=== PATIENT | male | born 1965 | race Caucasian/White ===

== ENCOUNTER 2020-06-26 18:24 | Emergency (ER) | payer BC ==
[~2020-06-26] VITALS: Ht 177.8 cm; Wt 97.5 kg
[2020-06-26 18:37] VITALS: BP 118/80
[2020-06-26 18:55] LABS: ABSOLUTE MONOCYTES 0.4 thou/uL (0.0-1.2); ABSOLUTE NEUTROPHILS 5.4 thou/uL (1.6-8.1); BASOPHILS 0.6 %; EOSINOPHILS 0.2 %; HEMATOCRIT 43.3 % (42.0-52.0); HEMOGLOBIN 15.1 gm/dL (14.0-18.0); LYMPHOCYTES 25.3 %; MCH 29.7 pg (26.0-34.0); MCHC 34.8 g/dL (28.0-37.0); MCV 85.5 fL (80.0-100.0); MONOCYTES 5.5 %; MPV 6.9 fl. (7.2-11.1); NUCLEATED RBCS 0 /100WBC; PLATELET COUNT* 403 thou/uL (150-400); POLYS 68.4 %; RBC 5.06 mil/uL (4.50-6.00); RDW-CV 13.4 % (10.5-14.5); WBC 7.9 thou/uL (4.0-11.0)
[2020-06-26 19:01] LABS: INR 1.1; PROTIME 11.2 Seconds (9.20-11.50)
[2020-06-26 19:02] LABS: CALCIUM 8.7 mg/dL (8.5-10.1); CREATININE 1.5 mg/dL (0.6-1.3); POTASSIUM 3.6 mmol/L (3.5-5.1)
[2020-06-26 19:10] LABS: ALBUMIN 4.1 g/dL (3.4-5.0); TOTAL BILIRUBIN 0.5 mg/dL (<0.1-1.0); TOTAL PROTEIN 7.8 g/dL (6.4-8.2)
[2020-06-26 19:26] LABS: BE -5.3 mmol/L (-2 to +3); PCO2 31.5 mmHg (35.0-45.0); pH 7.386 (7.340-7.450)
--- NOTE | 2020-06-27 10:16 | EKG ---
[place] [address] ELECTROCARDIOGRAM REPORT Name: JASWINDER GIL JR Room: [facility]#: [id number] Admission: 06/26/20 Attend Phys: Discharge: 06/26/20 Date of : 63 Date of Service: 06/26/20 1833 Report #: [id number] THIS REPORT FOR: //name// [facility] ED Test Date: 2020-06-26 Test Time: 18:33:13 Pat Name: JASWINDER GIL Department: Room: Gender: Radio Dispatcher: ALEXANDR : 1965 Requested By: Irma Phillips Order Number: [id number] MD: Arslan Villaseñor Measurements Intervals [place] Rate: 116 P: 48 [place]: 133 QRS: 6 QRSD: 114 T: -88 QT: 372 QTc: 517 Interpretive Statements Sinus tachycardia nonspecific t wave changes Low voltage, precordial leads Anterior Q waves Prolonged QT interval No previous ECG available for comparison Electronically Signed On 06-27-2020 10:15:56 CDT by Arslan Villaseñor [email or web address] <ELECTRONICALLY SIGNED> By: Arslan Villaseñor MD, [facility] 06/27/20 1015 1833 1833 Arslan Villaseñor MD, [facility] /EPI
== END 2020-06-26 22:56 | disposition home or self-care (01) ==
LOC: M.ERS 18:24
PROVIDERS: Personal Emergency Response Attendant
DX: E11.65 Type 2 diabetes mellitus with hyperglycemia (principal); R07.9 Chest pain, unspecified; R41.82 Altered mental status, unspecified; R42 Dizziness and giddiness; I25.10 Atherosclerotic heart disease of native coronary artery without angina pectoris